=== PATIENT | male | born 1935 | race Caucasian/White ===

== ENCOUNTER 2018-01-07 05:20 | Emergency (ER) | payer OTHER, BC ==
[2018-01-07 06:20] VITALS: TEMP 98.2; BMI 23.1
[2018-01-07] MEDS ORDERED: morphine CARPU-JECT 2 MG/1 ML DISP.SYRIN IVPUSH ONE ×2 (07:33→09:44)
[2018-01-07] MEDS ORDERED: SODIUM CHLORIDE 1,000 ML IV STA (07:33)
[2018-01-07] MEDS ORDERED: LIDOCAINE HCL 2% JELLY (30 ML/TUBE) TP ONE (07:34)
[2018-01-07] MEDS ORDERED: morphine SULFATE 4 MG/ML VIAL ONE ×2 (07:43→09:30)
[2018-01-07] MEDS ORDERED: LIDOCAINE HCL 2% JELLY (5 ML/TUBE) ONE (07:43)
--- NOTE | 2018-01-07 07:48 | PDOC ---
History of Present Illness - General Chief Complaint: Pain, Acute Stated Complaint: ABD PAIN,URINARY PROBLEM Time Seen by Provider: 01/07/18 07:30 History Source: Patient Exam Limitations: No Limitations - History of Present Illness Travel History: No Initial Comments: 01/07/18 09:00 HPI: C2-year-old male presents to the emergency room with complaints of suprapubic pressure. He was seen here yesterday with complaints of dysuria and inability to void with urinary retention. Attempts were made to pass a Jones catheter. Urology on-call, Dr. iGanna Jones came in to see the patient. Just prior to attempt of placing another Jones with he went in and use the bathroom for bowel movement and was able to urinate a little bit. He was then discharged. He now returns because after several hours at home he's unable to void again and he has suprapubic pain and pressure. Chief Compliant:inability to urinate Pain location:suprapubic Duration:several hours Modifying factors:none Quality:pressure Radiating:denies Severity:10 out of 10 Time:Constant PMH: Diabetes, constipation, enlarged prostate FH: Pt has not recently traveled outside the country in the last 30 days. Pt has not been in contact with people who have traveled out of the country, in contact with people who have been ill with fever, n, v, d. SH: smoking use: NONE illicit drug use: NONE alcohol use: NONE employment/educational status: sexual history: PSH: Urinary strictures Home med use noted on NOV Allergies:NKA Immunizations: PCP: Dr. Wilson 01/07/18 09:04 Past History - Past Medical History Allergies/Adverse Reactions: Allergies Allergy/AdvReac Type Severity Reaction Status Date / Time No Known Allergies Allergy Verified 01/07/18 00:14 Home Medications: Ambulatory Orders NK [No Known Home Medication] 01/07/18 COPD: No - Immunization History Immunization Up to Date: Yes - Suicide/Smoking/Psychosocial Hx Smoking History: Never smoked Have you smoked in the past 12 months: No Hx Alcohol Use: No Drug/Substance Use Hx: No Review of Systems - Review of Systems Able to Perform ROS?: Yes Constitutional: No: Chills, Fever HEENTM: No: Symptoms Reported Respiratory: No: Symptoms reported Cardiac (ROS): No: Symptoms Reported ABD/GI: Yes: Abdominal Distended, Abd. Pain w/ defecation, Constipated. No: Diarrhea, Nausea, Vomiting : Yes: See HPI, Dysuria, Pain, Other (urinary retention). No: Burning Musculoskeletal: No: Symptoms Reported Integumentary: No: Symptoms Reported Neurological: No: Symptoms reported *Physical Exam - Vital Signs Last Vital Signs Temp Pulse Resp BP Pulse Ox 98.2 F 90 18 137/72 98 01/07/18 05:30 01/07/18 05:30 01/07/18 05:30 01/07/18 05:30 01/07/18 05:30 - Physical Exam General Appearance: Yes: Apparent Distress HEENT: positive: Normal Voice Respiratory/Chest: positive: Lungs Clear Cardiovascular: positive: Regular Rate Male Genitalia: positive: normal genitalia, other (unable to void). negative: normal prostate, testicular tenderness, testicular mass, inguinal hernia, hernia , hematuria Extremity: positive: Normal Inspection Integumentary: positive: Dry, Warm Medical Decision Making - Medical Decision Making 01/07/18 09:06 Patient initially seen and examined. Patient is stating he is complaining of urinary retention and suprapubic pain. Plan Attempted to place a 14, 12, Swiss catheter in through meatus. Restriction that at the prostate. Unable to pass the prostate and have urinary drainage. Lidocaine gel had been attempted. Patient received some pain medication however still unable to void. Contacted on-call, Dr. Gianna Jones to come in and place Jones. 01/07/18 10:18 Gave patient a second dose of morphine for his pain while he awaits Dr. Gianna Jones. Dr. Gianna Jones came in and placed a Jones catheter inserted to follow-up in the office in one week. Patient is much relieved and is not in any distress. He had over 800 mL in his bladder. UA and C&S are being sent. We'll attempt to reach out for his son to pick him up as he drove here however he has been receiving narcotics. 01/07/18 11:56 Was started on antibiotics yesterday for a UTI. Son at bedside and will send him home with jones and leg bag with instructions. *DC/Admit/Observation/Transfer Diagnosis at time of Disposition: Urinary retention - Discharge Dispostion Disposition: HOME Condition at time of disposition: Improved Admit: No - Referrals Referrals: Deepti Wilson MD [Primary Care Provider] - - Patient Instructions Printed Discharge Instructions: How to Care for Your Jones Catheter -- Male, DI for Urinary Retention in Men Additional Instructions: Discharge instructions 1. Please follow up with your primary physician within the next few days and explain that you have been seen here in the Emergency Room. 2. If you experience any worsening of symptoms, please return to the ER 3. Rest, wash hands prior to caring for your Jones catheter and after. Empty the bag frequently. 4. Drink plenty of water including cranberry juice Continue to take the Flomax and antibiotics as prescribed prior Follow-up with the urologist next Tuesday. Call on Tuesday to schedule an appointment. - Post Discharge Activity
[2018-01-07] MEDS: HYDROmorphone HCL CARPU-JECT 1 MG/1 ML DISP.SYRIN IVPUSH ONE ×2 (09:15→10:10)
[2018-01-07 11:08] LABS: URINE APPEARANCE SLCLOUDY; URINE BILIRUBIN NEGATIVE (<2.0 mg/dL); URINE BLOOD 3+ (NEGATIVE); URINE COLOR LTYELLOW; URINE GLUCOSE (UA) NEGATIVE (NEGATIVE); URINE KETONE TRACE (NEGATIVE); URINE LEUK ESTERASE NEGATIVE (NEGATIVE); URINE NITRITE NEGATIVE (NEGATIVE); URINE UROBILINOGEN NEGATIVE mg/dL (0.2-1.0)
[2018-01-07 11:46] LABS: URINE PROTEIN 2+ (NEGATIVE)
[2018-01-07 12:08] LABS: URINE MUCUS RARE
[2018-01-07 12:19] VITALS: BP 122/68; PULSE 79
== END 2018-01-07 12:35 | disposition home or self-care (01) ==
LOC: JER 05:20
PROC: 3E0337Z Introduction of Electrolytic and Water Balance Substance into Peripheral Vein, Percutaneous Approach (ICD-10-PCS; principal; 2018-01-07)
PROC: 3E033NZ Introduction of Analgesics, Hypnotics, Sedatives into Peripheral Vein, Percutaneous Approach (ICD-10-PCS; 2018-01-07)
PROC: 3E033NZ Introduction of Analgesics, Hypnotics, Sedatives into Peripheral Vein, Percutaneous Approach (ICD-10-PCS; 2018-01-07)
PROC: 0T9B70Z Drainage of Bladder with Drainage Device, Via Natural or Artificial Opening (ICD-10-PCS; 2018-01-07)
DX: N40.1 Benign prostatic hyperplasia with lower urinary tract symptoms (principal); C61 Malignant neoplasm of prostate; R33.8 Other retention of urine; E11.9 Type 2 diabetes mellitus without complications; K59.00 Constipation, unspecified
CPT/HCPCS: 51702; 81003; 81015; 87086; 96361; 96374; 96375; 99281-25; 99285-25; J7030

== ENCOUNTER 2018-01-26 10:30 | Observation (INO) | payer OTHER, BC ==
[2018-01-26] MEDS ORDERED: SODIUM CHLORIDE 1,000 ML IV STA (11:24)
[2018-01-26] MEDS ORDERED: ONDANSETRON 4 MG/2 ML VIAL IVPUSH ONE (11:24)
[2018-01-26] MEDS ORDERED: MECLIZINE HCL 25 MG TABLET (FP) PO ONE (11:24)
[2018-01-26 11:36] VITALS: BMI 23.0
--- NOTE | 2018-01-26 11:43 | PDOC ---
Attending Attestation - Resident Resident Name: Onesimo Powell - ED Attending Attestation I have performed the following: I have examined & evaluated the patient, The case was reviewed & discussed with the resident, I agree w/resident's findings & plan, Exceptions are as noted <Olivia Stein - Last Filed: 01/26/18 11:43> - HPI HPI: 01/26/18 11:56 The patient is a 82 year old male, with a significant past medical history of hypertension, hyperlipidemia, diabetes, constipation, and enlarged prostate, who presents to the emergency department with acute onset of dizziness since earlier this morning. Patient reports going to bed at his baseline last night and waking up every two hours. Patient reports he was last well at around 05:30 , but then around 07:30 when he went to the bathroom he began to feel as if his equilibrium was off and he was falling toward the left. He denies any associated abdominal pain, nausea, vomiting, diarrhea, constipation, melena, or hematochezia. He denies any fever, chills, cough, headache, lightheadedness, or focal weakness. The patient reports he has been evaluated by a neurologist, Dr. Painter, for difficulty with balance over the past year. At the time the patient had an MRI done, which was negative. The patient denies any history of strokes or trauma. He denies any chest pain, shortness of breath, diaphoresis, or palpitations. Allergies: NKDA PCP: Dr. Wilson - Physicial Exam PE: 01/26/18 11:56 GENERAL: Awake, alert, and fully oriented, in no acute distress HEAD: No signs of trauma EYES: PERRLA, EOMI, sclera anicteric, conjunctiva clear ENT: Auricles normal inspection, hearing grossly normal, nares patent. Moist mucosa NECK: Normal ROM, supple, no lymphadenopathy, JVD, or masses LUNGS: Breath sounds equal, clear to auscultation bilaterally. No wheezes, and no crackles HEART: Regular rate and rhythm, normal S1 and S2, no murmurs, rubs or gallops ABDOMEN: Soft, nontender, normoactive bowel sounds. No guarding, no rebound. No masses EXTREMITIES: Normal range of motion, no edema. No clubbing or cyanosis. No cords, erythema, or tenderness. DP/PT pulses 2+ and symmetric. NEUROLOGICAL: Positive romberg's. Unsteady gait. Moves all extremities. Normal speech. No focal weakness. Cranial nerves II-XII are grossly intact. Bilateral hand tremors. SKIN: Warm, Dry, normal turgor, no rashes or lesions noted. - Medical Decision Making 01/26/18 11:57 Documentation prepared by Jennifer Carcamo, acting as medical logistics specialist for Olivia Stein MD. First call placed place to Dr. Wilson at 14:16. Awaiting call back. Case discussed wih JESUS ALBERTO English. Dr. Wilson requests Dr. Bonilla for Neurology consult. First call placed to Dr. Bonilla at 14:26. Awaiting call back. <Jennifer Carcamo - Last Filed: 01/26/18 14:29> ED Treatment Course - LABORATORY CBC & Chemistry Diagram: 01/26/18 11:30 01/26/18 11:30 - ADDITIONAL ORDERS Additional order review: Laboratory Results 01/26/18 01/26/18 01/26/18 12:00 11:45 11:30 PT with INR 11.70 INR 1.04 PTT (Actin FS) 29.4 Sodium Potassium Chloride Carbon Dioxide Anion Gap BUN Creatinine Creat Clearance w eGFR Random Glucose Calcium Total Bilirubin AST ALT Alkaline Phosphatase B-Natriuretic Peptide Total Protein Albumin Urine Color Ltyellow Urine Appearance Clear Urine pH 7.0 Ur Specific Halbur 1.012 Urine Protein Negative Urine Glucose (UA) Negative Urine Ketones Negative Urine Blood Negative Urine Nitrite Negative Urine Bilirubin Negative Urine Urobilinogen Negative Ur Leukocyte Esterase Negative 01/26/18 11:30 PT with INR INR PTT (Actin FS) Sodium 141 Potassium 4.4 Chloride 107 Carbon Dioxide 26 Anion Gap 8 BUN 19 H Creatinine 1.1 Creat Clearance w eGFR > 60 Random Glucose 120 H Calcium 10.6 H Total Bilirubin 0.9 AST 13 L ALT 15 Alkaline Phosphatase 54 B-Natriuretic Peptide 217.46 Total Protein 7.2 Albumin 3.9 Urine Color Urine Appearance Urine pH Ur Specific Halbur Urine Protein Urine Glucose (UA) Urine Ketones Urine Blood Urine Nitrite Urine Bilirubin Urine Urobilinogen Ur Leukocyte Esterase 01/26/18 11:30 RBC 4.49 MCV 88.0 MCHC 33.3 RDW 14.5 MPV 9.1 Neutrophils % 69.8 Lymphocytes % 21.8 Monocytes % 6.9 Eosinophils % 1.2 Basophils % 0.3 - RADIOLOGY Radiograph Interpretation: 01/26/18 14:29 EXAM: Head CT IMPRESSION: Moderate atrophy and mild periventricular chronic microvascular ischemic disease changes without gross evidence of acute intracranial pathology. Correlate clinically to determine further evaluation and follow-up. - Medications Given in the ED: ED Medications Discontinued Medications Generic Name Dose Route Start Last Admin Trade Name Freq PRN Reason Stop Dose Admin Sodium Chloride 1,000 mls @ 1,000 mls/hr 01/26/18 11:24 01/26/18 12:06 Normal Saline - IV 01/26/18 12:23 1,000 mls/hr ASDIR STA Administration Meclizine HCl 25 mg 01/26/18 11:24 01/26/18 12:06 Antivert - PO 01/26/18 11:25 25 mg ONCE ONE Administration Ondansetron HCl 4 mg 01/26/18 11:24 01/26/18 12:06 Zofran Injection IVPUSH 01/26/18 11:25 4 mg ONCE ONE Administration <Jennifer Carcamo - Last Filed: 01/26/18 14:29>
[2018-01-26] MEDS ORDERED: ONDANSETRON 4 MG/2 ML VIAL ONE (11:59)
[2018-01-26] MEDS ORDERED: MECLIZINE HCL 25 MG TABLET (FP) ONE (11:59)
[2018-01-26 12:03] LABS: BASO % 0.3 % (0-2.0); EOS % 1.2 % (0-4.5); HEMATOCRIT 39.5 % (35.4-49); HEMOGLOBIN 13.1 GM/dL (11.7-16.9); LYMPH % 21.8 % (8-40); MCH 29.3 pg (25.7-33.7); MCHC 33.3 g/dl (32.0-35.9); MEAN PLT VOLUME 9.1 fl (7.5-11.1); MONO % 6.9 % (3.8-10.2); NEUT % 69.8 % (42.8-82.8); PLATELET COUNT 238 K/MM3 (134-434); RBC 4.49 M/mm3 (4.00-5.60); RDW 14.5 % (11.9-15.9)
--- NOTE | 2018-01-26 12:03 | PDOC ---
History of Present Illness - General Chief Complaint: Lightheaded Stated Complaint: Lightheaded Time Seen by Provider: 01/26/18 10:53 History Source: Patient Exam Limitations: No Limitations - History of Present Illness Initial Comments: 01/26/18 13:43 82M with pmh of HTN, HCL, DM2, constipation, and enlarged prostate, who presents to the emergency department with acute onset of dizziness/ lightheadedness/vertigo since earlier this morning. Patient reports being at baseline last around 5:30 when he woke up to urinate. He woke up 2 hours later and upon sitting on the side of the bed, fell like he was off balance, "off his equilibrium". Denies abdominal pain, nausea, vomiting, diarrhea, constipation, melena, or hematochezia. He denies any fever, chills, cough, headache, lightheadedness, or focal weakness. Previously evaluated by neurologist, Dr. Painter, for difficulty with balance over the past year. At the time the patient had an MRI done, which was negative. The patient denies any history of strokes or trauma. He denies any chest pain, shortness of breath, diaphoresis, or palpitations. 01/26/18 13:46 Past History - Past Medical History Allergies/Adverse Reactions: Allergies Allergy/AdvReac Type Severity Reaction Status Date / Time No Known Allergies Allergy Verified 01/07/18 00:14 Home Medications: Ambulatory Orders Amlodipine Besylate 5 mg PO DAILY 01/26/18 Aspirin [ASA -] 81 mg PO DAILY 01/26/18 Cholecalciferol (Vitamin D3) [Vitamin D -] 400 units PO DAILY 01/26/18 Metformin HCl [Glucophage] 500 mg PO DAILY 01/26/18 Pravastatin Sodium [Pravachol (Nf)] 40 mg PO HS 01/26/18 Sennosides [Senna -] PO HS 01/26/18 Sitagliptin Phosphate [Januvia] 100 mg PO DAILY 01/26/18 Vitamin B Complex 1 tab PO DAILY 01/26/18 COPD: No - Immunization History Immunization Up to Date: Yes - Suicide/Smoking/Psychosocial Hx Smoking History: Never smoked Have you smoked in the past 12 months: No Information on smoking cessation initiated: No Hx Alcohol Use: Yes (social) Drug/Substance Use Hx: No Review of Systems - Review of Systems Able to Perform ROS?: Yes Is the patient limited Mexican proficient: No Constitutional: No: Symptoms Reported HEENTM: No: Symptoms Reported Respiratory: No: Symptoms reported Cardiac (ROS): No: Symptoms Reported ABD/GI: No: Symptoms Reported : No: Symptoms Reported Musculoskeletal: No: Symptoms Reported Integumentary: No: Symptoms Reported Neurological: Yes: Unsteady Gait. No: Headache, Numbness Hematologic/Lymphatic: No: See HPI All Other Systems: Reviewed and Negative *Physical Exam - Vital Signs Last Vital Signs Temp Pulse Resp BP Pulse Ox 98.1 F 68 16 155/89 100 01/26/18 10:47 01/26/18 10:47 01/26/18 10:47 01/26/18 10:47 01/26/18 10:47 - Physical Exam General Appearance: Yes: Nourished, Appropriately Dressed. No: Apparent Distress HEENT: positive: EOMI, [place], Normal ENT Inspection Neck: negative: Tender Respiratory/Chest: positive: Lungs Clear, Normal Breath Sounds. negative: Chest Tender, Respiratory Distress Cardiovascular: positive: Regular Rhythm, Regular Rate, S1, S2 Gastrointestinal/Abdominal: positive: Normal Bowel Sounds, Flat, Soft. negative : Tender Musculoskeletal: positive: Normal Inspection. negative: CVA Tenderness Extremity: positive: Normal Capillary Refill, Normal Inspection, Normal Range of Motion Integumentary: positive: Normal Color, Dry, Warm Neurologic: positive: knife finisher II-XII NML intact, Fully Oriented, Alert, Normal Mood/ Affect, Other (positive romberg, gait deviated to the left, off balance.) ED Treatment Course - LABORATORY CBC & Chemistry Diagram: 01/26/18 11:30 01/26/18 11:30 Medical Decision Making - Medical Decision Making 01/26/18 13:52 82m\\ with vertigo and some evidence of cerebella dysfuntion. Will order basic labs, ct head and admit for MRI 01/26/18 16:26 All labs and UA negative. CT negative. Spoke to JESUS ALBERTO English for Dr. Regalado who accepted the patient . PLaced consult and spoke to Dr. Bonilla for Neurology *DC/Admit/Observation/Transfer Diagnosis at time of Disposition: Vertigo - Discharge Dispostion Admit: Yes - Referrals - Patient Instructions - Post Discharge Activity
[2018-01-26 12:26] LABS: URINE APPEARANCE CLEAR; URINE BILIRUBIN NEGATIVE (<2.0 mg/dL); URINE COLOR LTYELLOW; URINE GLUCOSE (UA) NEGATIVE (NEGATIVE); URINE KETONE NEGATIVE (NEGATIVE); URINE LEUK ESTERASE NEGATIVE (NEGATIVE); URINE NITRITE NEGATIVE (NEGATIVE); URINE PROTEIN NEGATIVE (NEGATIVE); URINE UROBILINOGEN NEGATIVE mg/dL (0.2-1.0)
[2018-01-26 12:31] LABS: INR 1.04 (0.82-1.09); PROTHROMBIN TIME (PATIENT) 11.7 SEC (9.7-13.0)
[2018-01-26 12:37] LABS: ALBUMIN 3.9 g/dl (3.4-5.0); ANION GAP 8 (8-16); BILIRUBIN,TOTAL 0.9 mg/dL (0.2-1.0); BLOOD UREA NITROGEN 19 mg/dL (7-18); CALCIUM 10.6 mg/dL (8.5-10.1); CHLORIDE 107 mmol/L (98-107); CO2 26 mmol/L (21-32); CREATININE 1.1 mg/dL (0.7-1.3); GLUCOSE,RANDOM 120 mg/dL (74-106); POTASSIUM 4.4 mmol/L (3.5-5.1); SGOT/AST 13 U/L (15-37); SGPT/ALT 15 U/L (12-78); SODIUM 141 mmol/L (136-145); TOT PROT 7.2 g/dl (6.4-8.2)
[2018-01-26 12:41] LABS: ALK PHOS 54 U/L (45-117); N-TERMINAL BNP 217.46 pg/ml (5-450)
--- NOTE | 2018-01-26 13:00 | EKG ---
Test Reason : Blood Pressure : / mmHG Vent. Rate : 052 BPM Atrial Rate : 052 BPM P-R Int : 158 ms QRS Dur : 088 ms QT Int : 440 ms P-R-T Axes : 058 008 029 degrees QTc Int : 409 ms SINUS BRADYCARDIA OTHERWISE NORMAL ECG NO PREVIOUS ECGS AVAILABLE Confirmed by RACHNA LUDWIG MD ([id number]) on 01/26/2018 1:00:43 PM Referred By: Confirmed By:RACHNA LUDWIG MD
--- NOTE | 2018-01-26 15:24 | CON.NEURO ---
Consult - History of Present Illness History of Present Illness: 82M with pmh of HTN, HCL, DM2, constipation, and enlarged prostate, who presents to the emergency department with acute onset of dizziness/ lightheadedness/vertigo since earlier this morning. Patient reports being at baseline last around 5:30 when he woke up to urinate. He woke up 2 hours later and upon sitting on the side of the bed, fell like he was off balance, "off his equilibrium". Denies abdominal pain, nausea, vomiting, diarrhea, constipation, melena, or hematochezia. He denies any fever, chills, cough, headache, lightheadedness, or focal weakness. Previously evaluated by neurologist, Dr. Painter, for difficulty with balance over the past year. At the time the patient had an MRI done, which was negative. The patient denies any history of strokes or trauma. He denies any chest pain, shortness of breath, diaphoresis, or palpitations. CT HD IMPRESSION: Moderate atrophy and mild periventricular chronic microvascular ischemic disease changes without gross evidence of acute intracranial pathology. Correlate clinically to determine further evaluation and follow-up. - Alcohol/Substance Use Hx Alcohol Use: Yes (social) - Smoking History Smoking history: Never smoked Have you smoked in the past 12 months: No Home Medications - Allergies Allergies/Adverse Reactions: Allergies Allergy/AdvReac Type Severity Reaction Status Date / Time No Known Allergies Allergy Verified 01/07/18 00:14 - Home Medications Home Medications: Ambulatory Orders Amlodipine Besylate 5 mg PO DAILY 01/26/18 Aspirin [ASA -] 81 mg PO DAILY 01/26/18 Cholecalciferol (Vitamin D3) [Vitamin D -] 400 units PO DAILY 01/26/18 Metformin HCl [Glucophage] 500 mg PO DAILY 01/26/18 Pravastatin Sodium [Pravachol (Nf)] 40 mg PO HS 01/26/18 Sennosides [Senna -] PO HS 01/26/18 Sitagliptin Phosphate [Januvia] 100 mg PO DAILY 01/26/18 Vitamin B Complex 1 tab PO DAILY 01/26/18 Physical Exam-Neuro Vital Signs: Vital Signs Temperature 98.1 F 01/26/18 10:47 Pulse Rate 68 01/26/18 10:47 Respiratory Rate 16 01/26/18 10:47 Blood Pressure 155/89 01/26/18 10:47 O2 Sat by Pulse Oximetry (%) 100 01/26/18 10:47 Labs: CBC, BMP 01/26/18 11:30 01/26/18 11:30 INR, PTT INR 1.04 (0.82-1.09) 01/26/18 11:30 - Neuro Exam Level Of Consciousness: Yes: Alert (awake , alert oriented , EOMi, no nystagmus , no facial, no dysmetria or ataxia, when he stands unstaedy , ) Imaging - Results Cat Scan: Report Reviewed, Image Reviewed Problem List - Problems (1) Abnormal gait Code(s): R26.9 - UNSPECIFIED ABNORMALITIES OF GAIT AND MOBILITY (2) Vertigo Code(s): R42 - DIZZINESS AND GIDDINESS Assessment/Plan 82M with pmh of HTN, HCL, DM2, constipation, and enlarged prostate, who presents to the emergency department with acute onset of dizziness/ lightheadedness/vertigo since earlier this morning- r/o central vertigo , r/o CVA ;positional dizziness favors peripheral origin start ASA check MRI BRAIN, consider ENT Dr Bonilla
--- NOTE | 2018-01-26 16:56 | HP ---
Admitting History and Physical - Admission Chief Complaint: cant get up / dizzy History of Present Illness: History of Present Illness: 82M with pmh of HTN, HCL, DM2, constipation, and enlarged prostate, who presents to the emergency department with acute onset of dizziness/ lightheadedness/vertigo since earlier this morning. Patient reports being at baseline last around 5:30 when he woke up to urinate. He woke up 2 hours later and upon sitting on the side of the bed, fell like he was off balance, "off his equilibrium". Denies abdominal pain, nausea, vomiting, diarrhea, constipation, melena, or hematochezia. He denies any fever, chills, cough, headache, lightheadedness, or focal weakness. Previously evaluated by neurologist, Dr. Painter, for difficulty with balance over the past year. At the time the patient had an MRI done, which was negative. The patient denies any history of strokes or trauma. He denies any chest pain, shortness of breath, diaphoresis, or palpitations. CT HD IMPRESSION: Moderate atrophy and mild periventricular chronic microvascular ischemic disease changes without gross evidence of acute intracranial pathology. Correlate clinically to determine further evaluation and follow-up. History Source: Patient, Family Member, Medical Record, Caregiver Limitations to Obtaining History: No Limitations - Smoking History Smoking history: Never smoked Have you smoked in the past 12 months: No - Alcohol/Substance Use Hx Alcohol Use: Yes (social) History of Substance Use: reports: None - Social History Usual Living Arrangement: Yes: With Spouse ADL: Family Assistance History of Recent Travel: No Home Medications - Allergies Allergies/Adverse Reactions: Allergies Allergy/AdvReac Type Severity Reaction Status Date / Time No Known Allergies Allergy Verified 01/07/18 00:14 - Home Medications Home Medications: Ambulatory Orders Amlodipine Besylate 5 mg PO DAILY 01/26/18 Aspirin [ASA -] 81 mg PO DAILY 01/26/18 Cholecalciferol (Vitamin D3) [Vitamin D -] 400 units PO DAILY 01/26/18 Metformin HCl [Glucophage] 500 mg PO DAILY 01/26/18 Pravastatin Sodium [Pravachol -] 40 mg PO HS 01/26/18 Sennosides [Senna -] PO HS 01/26/18 Sitagliptin Phosphate [Januvia] 100 mg PO DAILY 01/26/18 Vitamin B Complex 1 tab PO DAILY 01/26/18 Acetaminophen [Tylenol .Regular Strength -] 650 mg PO Q6H PRN tablet 01/27/18 Amlodipine Besylate [Norvasc -] 5 mg PO DAILY tablet 01/27/18 Aspirin Coated [Ecotrin -] 81 mg PO DAILY tablet.ec 01/27/18 Atorvastatin Ca [Lipitor] 40 mg PO HS tablet 01/27/18 Meclizine HCl [Antivert -] 25 mg PO Q8H 30 Days #90 tablet 01/27/18 Sitagliptin Phosphate [Januvia -] 100 mg PO DAILY@0700 tablet 01/27/18 metFORMIN HCL [Glucophage -] 500 mg PO DAILY@0700 tablet 01/27/18 Review of Systems - Review of Systems Constitutional: reports: Weakness. denies: Chills, Diaphoresis, Fever, Malaise , Night Sweats Eyes: denies: Blurred Vision, Double Vision, Photophobia HENT: denies: Difficult Swallowing, Ear Pain, Nasal Congestion Neck: reports: No Symptoms Cardiovascular: denies: Chest Pain, Palpitations, Shortness of Breath Respiratory: denies: Cough Gastrointestinal: reports: No Symptoms Genitourinary: reports: No Symptoms Breasts: reports: No Symptoms Reported Musculoskeletal: reports: No Symptoms Integumentary: reports: No Symptoms Neurological: reports: Other (vertigo) Hematology/Lymphatic: reports: No Symptoms Psychiatric: reports: No Symptoms Physical Examination Vital Signs: Vital Signs Temperature 98.2 F 01/26/18 15:30 Pulse Rate 68 01/26/18 15:30 Respiratory Rate 16 01/26/18 15:30 Blood Pressure 145/85 01/26/18 15:30 O2 Sat by Pulse Oximetry (%) 96 01/26/18 15:30 Constitutional: Yes: Well Nourished, No Distress, Mild Distress Eyes: Yes: Conjunctiva Clear, EOM Intact HENT: Yes: Atraumatic, Normocephalic Neck: Yes: Supple, Trachea Midline Cardiovascular: Yes: Regular Rate and Rhythm Respiratory: Yes: Regular Gastrointestinal: Yes: Normal Bowel Sounds ...Rectal Exam: Yes: Deferred Renal/: Yes: WNL Breast(s): Yes: WNL Musculoskeletal: Yes: WNL, Muscle Weakness Extremities: Yes: WNL Edema: No Peripheral Pulses WNL: Yes Integumentary: Yes: WNL Neurological: Yes: Alert, Oriented ...Motor Strength: WNL Psychiatric: Yes: Alert, Oriented Labs: CBC, BMP 01/26/18 11:30 01/26/18 11:30 Problem List - Problems (1) Vertigo Assessment/Plan: neurology evaluation ENT evaluation MRI start meclizine Code(s): R42 - DIZZINESS AND GIDDINESS (2) Hypertension Code(s): I10 - ESSENTIAL (PRIMARY) HYPERTENSION (3) Hyperlipemia Assessment/Plan: continue meds Code(s): E78.5 - HYPERLIPIDEMIA, UNSPECIFIED (4) Abnormal gait Assessment/Plan: neurology evaluation Code(s): R26.9 - UNSPECIFIED ABNORMALITIES OF GAIT AND MOBILITY
[2018-01-26] MEDS ORDERED: ONDANSETRON 4 MG TABLET PO PRN (16:57)
[2018-01-26] MEDS ORDERED: ACETAMINOPHEN 325 MG TABLET (FP) PO PRN (16:59)
[2018-01-26] MEDS: MECLIZINE HCL 25 MG TABLET (FP) PO PRN (17:47)
[2018-01-26] MEDS ORDERED: PT OWN MED DRAWER 7, Y5N ONE (18:19)
[2018-01-26] MEDS ORDERED: ATORVASTATIN CA 40 MG TABLET (FP) PO SCH (22:00)
[2018-01-27] MEDS ORDERED: metFORMIN HCL 500 MG TABLET (FP) PO SCH (07:00)
[2018-01-27] MEDS ORDERED: sitaGLIPtin PHOSPHATE 50 MG TABLET PO SCH (07:00)
[2018-01-27 07:23] LABS: BASO % 0.2 % (0-2.0); EOS % 2.1 % (0-4.5); HEMATOCRIT 38.8 % (35.4-49); LYMPH % 22.7 % (8-40); MCH 29.5 pg (25.7-33.7); MCHC 33.6 g/dl (32.0-35.9); MEAN CELL VOLUME 87.9 fl (80-96); MEAN PLT VOLUME 9.3 fl (7.5-11.1); MONO % 9.2 % (3.8-10.2); NEUT % 65.8 % (42.8-82.8); PLATELET COUNT 229 K/MM3 (134-434); RBC 4.42 M/mm3 (4.00-5.60); RDW 14.4 % (11.9-15.9); WHITE BLOOD COUNT 8.5 K/mm3 (4.0-10.0)
[2018-01-27 07:39] LABS: ANION GAP 5 (8-16); BLOOD UREA NITROGEN 18 mg/dL (7-18); CHLORIDE 107 mmol/L (98-107); CO2 29 mmol/L (21-32); GLUCOSE,RANDOM 104 mg/dL (74-106); MAGNESIUM 2.4 mg/dL (1.8-2.4); POTASSIUM 4.3 mmol/L (3.5-5.1); SODIUM 141 mmol/L (136-145)
[2018-01-27 07:55] LABS: CALCIUM 10.4 mg/dL (8.5-10.1)
[2018-01-27 09:36] LABS: CHOLESTEROL 124 mg/dL (50-200); HDL CHOLESTEROL 34 mg/dL (40-60); TRIGLYCERIDES 174 mg/dL (35-160)
[2018-01-27 09:38] LABS: PREALBUMIN 27.3 mg/dl (20-40)
[2018-01-27] MEDS ORDERED: amLODIPine BESYLATE 5 MG TABLET (FP) PO SCH (10:00)
[2018-01-27] MEDS ORDERED: ASPIRIN COATED 81 MG TABLET.EC PO SCH (10:00)
[2018-01-27] MEDS ORDERED: PT OWN MED DRAWER 7, Y5N ONE ×2 (10:15→11:11)
[2018-01-27] MEDS: MECLIZINE HCL 25 MG TABLET (FP) PO PRN (10:17)
--- NOTE | 2018-01-27 14:33 | CONSULT ---
Consult - text type - Consultation Consultation Note: ENT Consult 82 yo man with sudden onset of whirling vertigo yesterday. Was primarily motion related, and lasted most of the day. Hx of occasional brief vertigo before this for a long time. No hearing loss. Feels better today. No recent RTIs. P/WDWN WM sitting comfortably in a wheelchair in Radiology, in NAD Gaze: slight right beating nystagmus in right gaze AD Wax EAC/TM normal Nose normal OC/OP normal Neck no masses, nontender Imp: vertigo, possibly due to vestibular neuritis, improved Earwax Recommend outpatient follow up for ear cleaning and possible further vestibular testing Reconsult if worsens
[2018-01-27 15:19] VITALS: BP 121/80; PULSE 73; TEMP 98.6
--- NOTE | 2018-01-27 15:20 | PN ---
Progress Note (short form) - Note Progress Note: 82 y/o male admitted for Vertigo. Denies vertigo and pain at present. Vital Signs Period Temp Pulse Resp BP Sys/Byers Pulse Ox Last 24 Hr 97.7 F-98.4 F 53-68 16-20 122-157/55-85 96-98 CBC, BMP 01/27/18 05:35 01/27/18 05:35 HEENT- Normocephalic Neck- supple Lungs- CTAB Heart- S1/S2 Abd- Soft, NT Ext- Neg LE edema Active Medications Acetaminophen (Tylenol -) 650 mg PO Q6H PRN PRN Reason: PAIN LEVEL 1-5 Amlodipine Besylate (Norvasc -) 5 mg PO DAILY [facility] Last Admin: 01/27/18 10:10 Dose: 5 mg Aspirin (Ecotrin -) 81 mg PO DAILY [facility] Last Admin: 01/27/18 10:10 Dose: 81 mg Atorvastatin Calcium (Lipitor -) 40 mg PO HS [facility] Last Admin: 01/26/18 22:00 Dose: 40 mg Meclizine HCl (Antivert -) 25 mg PO Q8H PRN PRN Reason: VERTIGO Last Admin: 01/27/18 10:17 Dose: 25 mg Metformin HCl (Glucophage -) 500 mg PO DAILY@0700 [facility] Last Admin: 01/27/18 06:42 Dose: 500 mg Ondansetron HCl (Zofran -) 4 mg PO Q6H PRN PRN Reason: NAUSEA AND/OR VOMITING Sitagliptin Phosphate (Januvia -) 100 mg PO DAILY@0700 [facility] Last Admin: 01/27/18 06:42 Dose: 100 mg #Vertigo Stable at present Cont Meclizine ASA started Appreciate ENT and Neuro consults #HLD Cont statin #HTN BP stable Cont Amlodipine #DM Cont Januvia and Metformin
--- NOTE | 2018-01-27 18:16 | DS ---
Physical Examination Vital Signs: Vital Signs Temperature 98.6 F 01/27/18 15:19 Pulse Rate 73 01/27/18 15:19 Respiratory Rate 18 01/27/18 15:19 Blood Pressure 121/80 01/27/18 15:19 O2 Sat by Pulse Oximetry (%) 97 01/27/18 09:00 Findings/Remarks: 01/26/18 13:43 82M with pmh of HTN, HCL, DM2, constipation, and enlarged prostate, who presents to the emergency department with acute onset of dizziness/ lightheadedness/vertigo since earlier this morning. Patient reports being at baseline last around 5:30 when he woke up to urinate. He woke up 2 hours later and upon sitting on the side of the bed, fell like he was off balance, "off his equilibrium". Denies abdominal pain, nausea, vomiting, diarrhea, constipation, melena, or hematochezia. He denies any fever, chills, cough, headache, lightheadedness, or focal weakness. Previously evaluated by neurologist, Dr. Painter, for difficulty with balance over the past year. At the time the patient had an MRI done, which was negative. The patient denies any history of strokes or trauma. He denies any chest pain, shortness of breath, diaphoresis, or palpitations. #Vertigo improved - resolved continue meclizine for 2 weeks ENT and Neuro evaluation completed MRI negative ASA started can follow up with ENT #HLD Cont statin #HTN BP stable Cont Amlodipine #DM Cont Januvia and Metformin Constitutional: Yes: Well Nourished, No Distress, Calm Eyes: Yes: WNL, Conjunctiva Clear, EOM Intact HENT: Yes: Atraumatic, Normocephalic Neck: Yes: Supple, Trachea Midline Cardiovascular: Yes: Regular Rate and Rhythm Respiratory: Yes: Regular Gastrointestinal: Yes: Normal Bowel Sounds Renal/: Yes: WNL Breast(s): Yes: WNL Musculoskeletal: Yes: WNL Extremities: Yes: WNL Edema: No Peripheral Pulses WNL: Yes Neurological: Yes: Alert, Oriented ...Motor Strength: WNL Psychiatric: Yes: Alert, Oriented Labs: CBC, BMP 01/27/18 05:35 01/27/18 05:35 Discharge Summary Reason For Visit: VERTIGO Current Active Problems Abnormal gait (Acute) Vertigo (Acute) Condition: Improved - Instructions Referrals: Deepti Wilson MD [Primary Care Provider] - Disposition: HOME - Home Medications Comprehensive Discharge Medication List: Ambulatory Orders Cholecalciferol (Vitamin D3) [Vitamin D -] 400 units PO DAILY 01/26/18 Metformin HCl [Glucophage] 500 mg PO DAILY 01/26/18 Pravastatin Sodium [Pravachol -] 40 mg PO HS 01/26/18 Sennosides [Senna -] PO HS 01/26/18 Sitagliptin Phosphate [Januvia] 100 mg PO DAILY 01/26/18 Vitamin B Complex 1 tab PO DAILY 01/26/18 Acetaminophen [Tylenol .Regular Strength -] 650 mg PO Q6H PRN tablet 01/27/18 Amlodipine Besylate [Norvasc -] 5 mg PO DAILY tablet 01/27/18 Aspirin Coated [Ecotrin -] 81 mg PO DAILY tablet.ec 01/27/18 Meclizine HCl [Antivert -] 25 mg PO Q8H 30 Days #90 tablet 01/27/18
== END 2018-01-27 18:47 | disposition home or self-care (01) ==
LOC: JER 10:30 → JERBED 14:22 → UNDOADMOB 14:22 → INTOOBSV 15:53 → OBSVTOIN 15:53 → J8W 15:56 → JERBED 15:56 → J8W 01-27 15:35 → JERBED 01-27 15:35
PROVIDERS: ADMIT Family Medicine; ATTEND Family Medicine
PROC: 3E033GC Introduction of Other Therapeutic Substance into Peripheral Vein, Percutaneous Approach (ICD-10-PCS; principal; 2018-01-27)
PROC: 3E0337Z Introduction of Electrolytic and Water Balance Substance into Peripheral Vein, Percutaneous Approach (ICD-10-PCS; 2018-01-27)
DX: R42 Dizziness and giddiness (principal); I10 Essential (primary) hypertension; E78.5 Hyperlipidemia, unspecified; E11.9 Type 2 diabetes mellitus without complications; N40.0 Benign prostatic hyperplasia without lower urinary tract symptoms; Z79.82 Long term (current) use of aspirin; Z79.84 Long term (current) use of oral hypoglycemic drugs; R26.9 Unspecified abnormalities of gait and mobility
CPT/HCPCS: 36415; 70450-TC; 70551-TC; 80048; 80053; 80061; 81003; 82962; 83036; 83721; 83735; 83880; 84134; 84443; 85025; 85610; 85730; 93005; 93010; 96361; 96374; 97116-GP; 97161-GP; 99282-25; G0378; J7030